=== PATIENT | female | born 1990 | race Caucasian/White ===

== ENCOUNTER 2020-05-19 10:51 | Emergency (ER) | payer OTHER ==
[~2020-05-19] VITALS: Ht 154.9 cm; Wt 96.5 kg
[2020-05-19 11:29] LABS: URINE PREG TEST NEGATIVE (NEGATIVE)
[2020-05-19] MEDS ORDERED: PYRI1TAB5 PO (11:57)
[2020-05-19] MEDS ORDERED: CEPH500T PO (11:59)
[2020-05-19 12:21] VITALS: BP 133/87
== END 2020-05-19 12:25 | disposition home or self-care (01) ==
LOC: M ED 10:51
DX: N39.0 Urinary tract infection, site not specified (principal); N39.3 Stress incontinence (female) (male); Z79.899 Other long term (current) drug therapy

== ENCOUNTER → 2020-10-27 | Outpatient (CLI) | payer OTHER ==
[~2020-10-27] MED LIST: CEPH500T PO; ISOVUE-370 76% 100ML VIAL As Ordered ONE; PYRI1TAB5 PO
--- NOTE | 2020-10-27 15:47 | REP ---
INDICATION: INFERTILITY. COMPARISON: None. TECHNIQUE: The endometrium was cannulated and contrast was injected by the attending light coil winder Dr. Muniz and Dr. Nichols. Fluoroscopic spot films were acquired by Debbie Burgos [facility], under the direct supervision of Dr. Ness. Images reviewed prior to dictation with Dr. Ness. FINDINGS: Fluoroscopy spot radiographs document filling of a normal endometrial cavity. There is normal isthmic and ampullary fallopian tube opacification, and bilateral tubal patency was documented. IMPRESSION: Normal hysterosalpingogram with bilateral tubal patency documented. 0.6 minutes of fluoroscopy time was utilized for this procedure. Some fluoroscopic images are performed with last image hold technology. These images require no additional radiation. <Electronically signed by Debbie Burgos > 10/27/20 1532 <Electronically signed by Tony Ness > 10/27/20 1540
== END ==
LOC: M RADPRO 11:53
PROVIDERS: ATTEND Obstetrics & Gynecology
DX: N97.9 Female infertility, unspecified (principal)
CPT/HCPCS: 58340; 74740; Q9967

== ENCOUNTER 2021-05-16 14:49 | Emergency (ER) | payer OTHER ==
[~2021-05-16] VITALS: Ht 154.9 cm; Wt 100.0 kg
[~2021-05-16 14:49] MED LIST changes: -ISOVUE-370 76% 100ML VIAL As Ordered ONE
[2021-05-16] MEDS ORDERED: LIDOCAINE 5% (LIDODERM) PATCH TD ONE (19:10)
[2021-05-16] MEDS ORDERED: methocarbamoL 500 MG TAB PO ONE (19:10)
[2021-05-16] MEDS ORDERED: KETOROLAC 30 MG/ML 1ML VIAL IM ONE (19:10)
[2021-05-16 19:47] LABS: BASO # 0.1 10^3/uL (0.0-0.2); BASO % 0.6 % (0.0-1.0); EOS # 0.1 10^3/uL (0.0-0.5); EOS % 1.6 % (0.0-3.0); HEMATOCRIT 43.3 % (36.0-47.0); HEMOGLOBIN 14.7 g/dl (12.0-15.5); LYMPH # 3.3 10^3/uL (1.5-5.0); LYMPH % 36.8 % (24.0-44.0); MEAN CORPUSCULAR HEMOGLOBIN 30.6 pg (27.0-33.0); MEAN CORPUSCULAR HGB CONC 33.9 g/dl (32.0-36.5); MEAN CORPUSCULAR VOLUME 90.2 fl (80.0-96.0); MONO # 0.4 10^3/uL (0.0-0.8); MONO % 4.6 % (2.0-8.0); NEUTROPHILS % 56.2 % (36.0-66.0); PLATELET COUNT, AUTOMATED 319 10^3/uL (150-450); WHITE BLOOD COUNT 8.9 10^3/uL (4.0-10.0)
[2021-05-16] MEDS ORDERED: **NOTE PATIENT COMMENT** MISC XX SCH (21:00)
[2021-05-16] MEDS ORDERED: LIDO5DIS41 TOP (21:01)
[2021-05-16] MEDS ORDERED: KETO10TAB PO (21:02)
[2021-05-16] MEDS ORDERED: METH-1164 PO (21:02)
[2021-05-16 21:15] VITALS: BP 142/88
== END 2021-05-16 21:23 | disposition home or self-care (01) ==
LOC: M ED 14:49
DX: M54.2 Cervicalgia (principal)
CPT/HCPCS: 80047; 84702; 85025; 96372; 99283; J1885